=== PATIENT | female | born 1990 | race Caucasian/White ===

== ENCOUNTER 2016-09-16 09:30 | Emergency (ER) | payer SELFPAY ==
[2016-09-16 09:44] VITALS: BP 133/98; BMI 34.9
[2016-09-16] MEDS ORDERED: TORADOL 60 MG VIAL IM ONE (10:12)
[2016-09-16] MEDS ORDERED: DUONEB 0.5 MG/3 MG NEB ONE (10:13)
[2016-09-16] MEDS ORDERED: SOLU-MEDROL 125 MG VIAL IM ONE (10:13)
[2016-09-16] MEDS ORDERED: DUONEB 0.5 MG/3 MG ONE (10:19)
[2016-09-16] MEDS ORDERED: TORADOL 60 MG VIAL ONE (10:19)
[2016-09-16] MEDS ORDERED: SOLU-MEDROL 125 MG VIAL ONE (10:19)
--- NOTE | 2016-09-16 10:25 | DR.GENAD ---
HPI - PCP Primary Care Physician: NFD - Complaint/Symptoms Chief Complaint Doctors Comments: Patient complains of headache onset two days ago and she took Tylenol and the next day she felt worst with headache, cough, chest burning when she cough, stomach hurting with vomiting and states she stayed in bed all day yesterday with her head pounding adnd coughing. Today her head, chest and stomach hurts and she is unable to eat with decreased appetitie. States the pain is 10 of 10 in her head but she does not want a CT scan of her head because she has no insurance.. She is having bilateral temporal pain that goes to the occipital area. She denies nausea, vomiting, blurred vision or problems with her balance or gait. States headache worst when she cough. She has been taking Tylenol but it is not working. She has nasal congestion. States she has a BTL and her last period was two weeks ago. She works at [employer] and think she has been exposed to the flu. She has not had the flu shot. Chief Complaint:: PT C/O " CCC, MIGRAINE, SOB, AND BAD COUGH". Self Treatment fo Chief Complaint: VICKS RUB, PAIN RELEAVER.. - Nurses notes reviewed Nurses Notes Review: Yes - Source History Provided: Patient - Mode of Arrival Mode of Arrival: Ambulatory - Timing Onset of Chief Complaint: 09/14/16 Came on: Gradually - Duration Duration: Constant How lon Duration: Days - Location Location: temporal headache - Severity Severity: Moderate - Modifying Factors Worsens:: coughing Improves:: nothing PMH - PMH Past Medical History: Yes Past Medical History: Asthma Past Surgical History: Yes Surgical History: , [employer] Surgery - Family History History of Family Medical Conditions: Yes Family Medical History: Coronary Artery Disease - Social History Does patient currently use any type of tobacco product: Yes Have you used tobacco products in the last 12 months: Yes Type of Tobacco Use: Cigars How many years tobacco product used: 3 Does any household member use tobacco: No Alcohol Use: None Do you use any recreational Drugs:: No Lives With: Family Lives Where: Home - infectious screening In the last 2 months have you had wt loss of >10#?: NO Have you had fever, night sweats or hemotysis?: No Have you traveled outside the country in the last 6 months?: No Isolation: Standard ROS - Review of Systems Constitutional: No Symptoms Reported, Weakness, Loss of Appetite. negative: See HPI, Chills, Diaphoresis, Fever, Malaise, Irritable, Fatigue, Other Eyes: No Symptoms Reported, See HPI ENTM: Nose Discharge, Nose Congestion, Throat Pain. negative: No Symptoms Reported, See HPI, Ear Pain, Ear Discharge, Pulling on Ears, Hearing Loss, Nose Pain, Epistaxis, Mouth Pain, Mouth Swelling, Loose Teeth, Drooling, Throat Swelling, Ear Foreign Body Respiratoy: Non-Productive Cough, Wheezing. negative: No Symptoms Reported, See HPI, Productive Cough, Moist Cough, Dry Cough, Hacking Cough, Barking Cough , Brassy Cough, Orthopnea, Short of Breath, Stridor, Hemoptysis, Other Cardiovascular: No Symptoms Reported, Chest Pain (diffuse chest pain when she cough and pain under her ribs). negative: See HPI, Edema, Palpitations, Syncope , Cyanosis, Skin Mottling, Other Gastrointestinal/Abdominal: No Symptoms Reported. negative: See HPI, Abdominal Pain, Constipation, Diarrhea, Nausea, Vomiting, Food Intolerance, Other Genitourinary: No Symptoms Reported. negative: See HPI, Discharge, Dysuria, Frequency, Hematuria, Pain, Bleeding, Other Neurological: No Symptoms Reported, Headache, Weakness. negative: See HPI, Anxiety, Depressed, Emotional Problems, Numbness, Paresthesia, Pre-existing Deficit, Seizure, Tingling, Tremors, Dizziness, Problems Walking, Speech Problem , Other Musculoskeletal: No Symptoms Reported Integumentary: No Symptoms Reported. negative: See HPI, Change in Color, Change in Hair/Nails, Dryness, Lesions, Lumps, Rash, Itching, Wound, Bruises, Juandice, Other Hematologic/Lymphatic: No Symptoms Reported. negative: See HPI, Anemia, Blood Clots, Easy Bleeding, Easy Bruising, Swollen Glands, Lymphadenopathy, Other Endocrine: No Symptoms Reported, Decreased Appetite. negative: See HPI, Excessive Sweating, Flushing, Intolerance to Cold, Intolerance to Heat, Increased Hunger, Increased Thirst, Increased Urine, Unexplained Weight Gain, Unexplained Weight Loss, Failure to Thrive, Other Psychiatric: No Symptoms Reported PE - Vital Signs Vitals: Temperature 99.9 F Pulse Rate 115 Respiratory Rate 20 Blood Pressure 133/98 O2 Sat by Pulse Oximetry 95 - General Limitations: No Limitations General Appearance: Alert, In Distress (mild) - Head Head Exam: Normal Inspection, Atraumatic, Normocephalic - Eyes Eye exam: Normal Appearance, PERRL, EOMI. negative: Scleral Icterus, Conjunctival Injection, Nystagmus, Miosis, Mydrasis, Periorbital Swelling, Periorbital Tenderness, Other - ENT ENT Exam: Normal Exam, Normal Oropharynx, Normal External Ear Exam, Mucous Membranes Moist, TM's Normal Bilaterally (nasal congestion, edematous mucosa) External Ear Exam: Normal External Inspection TM/Canal Exam: Bilateral Normal Nose Exam: Normal Nose Exam Mouth Exam: Normal Inspection. negative: Drooling, Trismus, Lip Swelling, Tongue Elevation, Tongue Swelling, Laceration, Other Throat Exam: Normal Inspection, Tonsillar Erythema. negative: Tonsillomegaly, Tonsillar Exudate, R Peritonsillar Mass, L Peritonsillar Mass, Muffled Voice, Other - Neck Neck Exam: Normal Inspection, Full ROM, Trachea Midline. negative: Tenderness, Meningismus, Lymphadenopathy, Thyromegaly, Other - Chest Chest Inspection: Normal Inspection, Symmetric Chest Wall Rise - Respiratory Respiratory Exam: Normal Lung Sounds Bilat, Chest Wall Tenderness (left chest wall tenderness LUQ), Prolonged Expiratory Phase. negative: Accessory Muscle Use, Respiratory Distress, Stridor, Other Respiratory Exam: Bilateral Wheezing, Bilateral Decreased Breath Sounds - Cardiovascular Cardiovascular Exam: Regular Rate, Normal Rhythm, Normal Heart Sounds. negative : Bradycardia, Tachycardia, Irregular Rhythm, Systolic Murmur, Diastolic Murmur , Rubs, Gallop, Clicks, JVD, +S1, +S2, +S3, +S4, Other - Abdominal Exam Abdominal Exam: Normal Inspection, Normal Bowel Sounds, Soft, Tenderness (LUQ tenderness) Abdominal Tenderness: LUQ, Mild - Extremities Extremities Exam: Normal Inspection, Full ROM, Normal Capillary Refill - Back Back Exam: Normal Inspection, Full ROM. negative: Tenderness, (R) CVA Tenderness, (L) CVA Tenderness, Muscle Spasm, Paraspinal Tenderness, Vertebral Tenderness, Rashes, (R) Sciatic Notch Tenderness, (L) Sciatic Notch Tendern, (R ) Straight Leg Raise, (L) Straight Leg Raise, Other - Neurologic Neurological Exam: Alert, Oriented X3, CN II-XII Intact, Reflexes Normal. negative: Normal Gait (gait not tested) - Psychiatric Psychiatric Exam: Normal Affect, Normal Mood - Skin Skin Exam: Warm, Dry, Intact, Normal Color ROR - Labs Reviewed Laboratory Results Reviewed?: Yes (All labs and x-ray results reviewed and discussed with patient. ) - Other Results Comments: Influenza test not available. Patient states she will call back for the results and get the prescription filled if it is positive. - XRAY XRAY Interpreted by: Radiologist (CXR: Heart normal size no evidence of bacterial pneumonia. Possible bronchitis.) - Diagnosis Discharge Problem: Bronchitis, possible influenza Sinusitis, acute Qualifiers: Sinusitis location: maxillary Headache Qualifiers: Headache type: unspecified - Discharge Plan Disposition: HOME, SELF-CARE Condition: Stable Prescriptions: Albuterol Sulfate [Proair Hfa] 2 puff INH Q4H PRN #1 aer PRN Reason: Asthma Symptoms Ciprofloxacin HCl [CIPRO 500 MG TAB *] 500 mg PO Q12H #20 tab Ibuprofen [MOTRIN TAB 800 MG *] 800 mg PO BID PRN #60 tab PRN Reason: Pain/Inflammation Loratadine [Allergy] 10 mg PO DAILY #30 tab Oseltamivir Phosphate [TAMIFLU 75 MG CAP (ADULT) *] 75 mg PO BID #10 cap - Follow ups/Referrals Follow ups/Referrals: NFD,None [Primary Care Provider] - 3 days - Instructions Instructions: General Headache Without Cause, [id number], Acute Bronchitis, Sinusitis, Adult, Influenza, Adult, [id number]
--- NOTE | 2016-09-16 10:46 | RAD ---
HISTORY: Coughing, wheezing Study: Two-view Chest Comparison: Findings: The trachea is midline . There is no widening or shift of mediastinum. The cardiac silhouette appear s within normal limits. The costophrenic angles are sharp and both diaphragms are adequately maintai fausto. The lungs are adequately aerated. Osseous structures are within normal limits for the patient's age minimal peribronchial thickening in the right hilum consistent with bronchitis. IMPRESSION: 1. Heart normal size no evidence of bacterial pneumonia. Possible bronchitis. Reported By:
[2016-09-16] MEDS ORDERED: LEVAQUIN TAB 500 MG PO STA (10:59)
[2016-09-16] MEDS ORDERED: CLARITIN PO STA (11:00)
[2016-09-16] MEDS ORDERED: LEVAQUIN TAB 500 MG ONE (11:04)
[2016-09-16] MEDS ORDERED: CLARITIN ONE (11:04)
== END 2016-09-16 11:22 | disposition home or self-care (01) ==
LOC: ER 09:47
DX: J40 Bronchitis, not specified as acute or chronic (principal); J01.80 Other acute sinusitis; R51 Headache
CPT/HCPCS: 71020; 87502; 87503; 94640; 96372; 99282; 99283; J1885; J2930; J7620